=== PATIENT | male | born 1960 | race Two or more races ===

== ENCOUNTER 2023-07-15 14:46 | Emergency (ER) | payer MEDICAID ==
[~2023-07-15] VITALS: Ht 182.9 cm; Wt 83.6 kg
[2023-07-15 14:55] VITALS: BP 114/64; PULSE 76; RESP 18; TEMP 97.8; O2SAT 99
== END 2023-07-15 18:34 | disposition home or self-care (01) ==
LOC: ER 14:46
DX: M79.671 Pain in right foot (principal)
CPT/HCPCS: 73630